=== PATIENT | male | born 1950 | race Caucasian/White ===

== ENCOUNTER 2022-04-25 06:17 | Day surgery (SDC) | payer MEDICARE, BC ==
[2022-04-23 14:31] VITALS: BMI 32.5
[2022-04-25] MEDS ORDERED: Fentanyl 100 MCG/2 ML VIAL ONE (08:57)
[2022-04-25] MEDS ORDERED: PROPOFOL 40 ML ONE (08:57)
[2022-04-25] MEDS ORDERED: Midazolam HCl 2 mg/2 ml Vial ONE (09:00)
== END 2022-04-25 10:00 | disposition home or self-care (01) ==
LOC: CSHSDC 06:17
PROVIDERS: ATTEND Internal Medicine Gastroenterology
PROC: 0DBK8ZZ Excision of Ascending Colon, Via Natural or Artificial Opening Endoscopic (ICD-10-PCS; principal; 2022-04-25)
DX: K63.5 Polyp of colon (principal); K57.30 Diverticulosis of large intestine without perforation or abscess without bleeding; K64.9 Unspecified hemorrhoids; K62.7 Radiation proctitis; I78.1 Nevus, non-neoplastic; I10 Essential (primary) hypertension; Z85.46 Personal history of malignant neoplasm of prostate; Z86.010 Personal history of colon polyps; Z79.899 Other long term (current) drug therapy
CPT/HCPCS: 88305; J2250; J2704; J3010

== ENCOUNTER 2023-06-26 02:53 | Inpatient (IN) | payer MEDICARE, BC ==
[2023-06-26 04:53] VITALS: BMI 32.5
[2023-06-26 05:54] LABS: #Monocytes 1.4 10x3/uL (0.0-1.1); #Neutrophils 9.5 10x3/uL (1.5-8.4); %Basophils 0.3 % (0.0-2.0); %Eosinophils 0.3 % (0.0-6.0); %Monocytes 12.1 % (0.0-10.0); %Neutrophils 79.8 % (40.0-75.0); Hematocrit 38.2 % (38.8-50.0); Hemoglobin 13.4 g/dL (13.5-17.5); Mean Corpuscular HGB CONC 35.1 g/dL (32.0-36.0); Mean Corpuscular Hemoglobin 30.2 pg (27.0-33.0); Mean Corpuscular Volume 86.2 fl (81.2-95.1); Mean Platelet Volume 10.9 fl (7.4-10.4); Platelet Count 161 10x3/uL (150-450); RBC Distribution Width 14.1 % (11.5-14.5); Red Blood Cell (RBC) Count 4.43 10x6/uL (4.32-5.72); White Blood Cell (WBC) Count 11.9 10x3/uL (3.5-10.5)
[2023-06-26 06:21] LABS: Anion Gap 17 mmol/L (10-20); Calc. Creatinine Clearance 64 mL/min (70-130); Calcium 8.7 mg/dL (7.8-10.44); Carbon Dioxide 26 mmol/L (23-31); Chloride 98 mmol/L (98-107); Estimated GFR 41; Glucose 130 mg/dL (83-110); Magnesium 1.9 mg/dL (1.6-2.6); Potassium 3.6 mmol/L (3.5-5.1); Sodium 137 mmol/L (136-145)
[2023-06-26 06:23] LABS: Critical Call Chem Troponin I NUR.DDB1 @0620; Troponin I 1.573 ng/mL (< 0.028)
[2023-06-26 06:54] LABS: BUN (Urea Nitrogen) 22 mg/dL (8.4-25.7)
[2023-06-26] MEDS ORDERED: Fluticasone Propionate Nasal Spray 16 gm Bottle NASAL PRN (07:08)
[2023-06-26] MEDS ORDERED: Heparin 10,000 UNITS/ 10 ML VIAL SLOW IVP SCH (08:45)
[2023-06-26] MEDS ORDERED: Heparin 25,000 units/D5W 500 ML IVPB SCH (08:45)
[2023-06-26 09:00] LABS: Troponin I 1.352 ng/mL (< 0.028)
[2023-06-26 09:22] LABS: Hematocrit 37.4 % (38.8-50.0); Hemoglobin 12.8 g/dL (13.5-17.5)
[2023-06-26 09:24] LABS: Platelet Count 143 10x3/uL (150-450)
[2023-06-26] MEDS: Morphine 2 MG/ML VIAL SLOW IVP PRN (09:32)
[2023-06-26] MEDS: Amlodipine 10 MG TAB PO SCH (09:34)
[2023-06-26] MEDS: CO Q-10 CAPSULE 50 MG PO SCH (09:34)
[2023-06-26] MEDS: Potassium Chloride 20 MEQ TAB PO SCH (09:34)
[2023-06-26] MEDS: Hydrochlorothiazide 25 MG TAB PO SCH (09:35)
[2023-06-26] MEDS: Aspirin 325 MG TAB PO SCH ×2 (11:27→15:54)
[2023-06-26 14:57] LABS: Anion Gap 12 mmol/L (10-20); BUN (Urea Nitrogen) 17 mg/dL (8.4-25.7); Calc. Creatinine Clearance 67 mL/min (70-130); Calcium 8.5 mg/dL (7.8-10.44); Carbon Dioxide 26 mmol/L (23-31); Chloride 99 mmol/L (98-107); Estimated GFR 43; Glucose 105 mg/dL (83-110); Sodium 133 mmol/L (136-145)
[2023-06-26] MEDS: Acetaminophen 325 MG TAB PO PRN (15:54)
[2023-06-26] MEDS: Atorvastatin Calcium 40 MG TAB PO SCH (20:31)
[2023-06-26] MEDS: Apixaban 5 MG TAB PO SCH (20:31)
[2023-06-26] MEDS: Loratadine 10 MG TAB PO SCH (20:31)
[2023-06-26] MEDS ORDERED: Apixaban 5 MG TAB PO SCH (21:00)
[2023-06-27] MEDS: Metoprolol Tartrate 25 MG TAB PO SCH (01:22)
[2023-06-27 04:50] LABS: Hematocrit 39.8 % (38.8-50.0); Hemoglobin 13.3 g/dL (13.5-17.5); Mean Corpuscular HGB CONC 33.4 g/dL (32.0-36.0); Mean Corpuscular Hemoglobin 28.9 pg (27.0-33.0); Mean Corpuscular Volume 86.5 fl (81.2-95.1); Mean Platelet Volume 10.6 fl (7.4-10.4); Platelet Count 142 10x3/uL (150-450); RBC Distribution Width 14.3 % (11.5-14.5)
[2023-06-27] MEDS ORDERED: Aspirin 81 mg Enteric Coated Tablet PO SCH (09:00)
[2023-06-28 06:35] LABS: Anion Gap 13 mmol/L (10-20); BUN (Urea Nitrogen) 18 mg/dL (8.4-25.7); Calc. Creatinine Clearance 68 mL/min (70-130); Calcium 8.7 mg/dL (7.8-10.44); Carbon Dioxide 28 mmol/L (23-31); Chloride 97 mmol/L (98-107); Estimated GFR 44; Glucose 106 mg/dL (83-110); Potassium 3.3 mmol/L (3.5-5.1); Sodium 135 mmol/L (136-145)
[2023-06-28] MEDS: Potassium Chloride 20 MEQ TAB PO SCH (08:46)
[2023-06-28 13:12] VITALS: BP 121/66; TEMP 97.9
== END 2023-06-28 14:10 | disposition home or self-care (01) | DRG 273 ==
LOC: CSHTELE 03:53 → OBSVTOIN 06-27 17:08
PROVIDERS: ADMIT Family Medicine; ATTEND Internal Medicine
PROC: 4A027FZ Measurement of Cardiac Rhythm, Via Natural or Artificial Opening (ICD-10-PCS; 2023-06-24)
PROC: 4A0274Z Measurement of Cardiac Electrical Activity, Via Natural or Artificial Opening (ICD-10-PCS; 2023-06-24)
PROC: B245ZZ4 Ultrasonography of Left Heart, Transesophageal (ICD-10-PCS; 2023-06-24)
PROC: 5A09357 Assistance with Respiratory Ventilation, Less than 24 Consecutive Hours, Continuous Positive Airway Pressure (ICD-10-PCS; principal; 2023-06-27)
DX: I31.9 Disease of pericardium, unspecified (principal); I21.A1 Myocardial infarction type 2; J96.01 Acute respiratory failure with hypoxia; I48.19 Other persistent atrial fibrillation; I48.91 Unspecified atrial fibrillation; I10 Essential (primary) hypertension; G47.33 Obstructive sleep apnea (adult) (pediatric); E78.5 Hyperlipidemia, unspecified; M06.9 Rheumatoid arthritis, unspecified; Z87.891 Personal history of nicotine dependence; Z79.899 Other long term (current) drug therapy; Z79.01 Long term (current) use of anticoagulants; Z98.890 Other specified postprocedural states; Z90.49 Acquired absence of other specified parts of digestive tract; R07.89 Other chest pain; M13.80 Other specified arthritis, unspecified site; I34.0 Nonrheumatic mitral (valve) insufficiency; Z88.8 Allergy status to other drugs, medicaments and biological substances
CPT/HCPCS: 36415; 71045; 80048; 80053; 80061; 83735; 83880; 84443; 84484; 85025; 85027; 85347; 85610; 85730; 93005; 93010; 93306; 93312; 93656; 93657; 94760; 96374; 96375; C1732; C1759; C1760; C1893; C1894; C2630; G0378; J1100; J1644; J2270; J2272; J2405; J2704; J2720; J3010